=== PATIENT | female | born 1965 | race Caucasian/White ===

== ENCOUNTER → 2017-12-13 07:59 | Outpatient (CLI) | payer BC, SELFPAY ==
[2017-12-13 08:22] VITALS: BP 155/99; PULSE 65; RESP 16; TEMP 36.6; O2SAT 98; BMI 40.2
[2017-12-13 09:22] VITALS: BP 139/76; PULSE 67; RESP 18; TEMP 36.6; O2SAT 96
[2017-12-13 09:36] VITALS: BP 140/82; PULSE 68; RESP 18; TEMP 36.8
[2017-12-13 09:55] VITALS: BP 146/84; PULSE 69; RESP 16; TEMP 36.9; O2SAT 98
[2017-12-13 10:11] VITALS: BP 148/90; PULSE 77; RESP 18; TEMP 37; O2SAT 97
[2017-12-13 11:13] VITALS: BP 158/90; PULSE 69; RESP 18; TEMP 36.7; O2SAT 96
== END ==
PROVIDERS: Family Provider Internal Medicine; PCP Internal Medicine
DX: K50.00 Crohn's disease of small intestine without complications (principal); K60.3 Anal fistula
CPT/HCPCS: 96413; J1745; J7050; A4216

== ENCOUNTER → 2017-12-31 07:53 | Outpatient (CLI) | payer BC, SELFPAY ==
[2017-12-31 08:05] VITALS: BP 178/97; PULSE 68; RESP 16; TEMP 36.5; O2SAT 95; BMI 40.7
[2017-12-31 09:10] VITALS: BP 155/80; PULSE 67; RESP 16; TEMP 36.6; O2SAT 96
[2017-12-31 09:25] VITALS: BP 157/89; PULSE 65; RESP 16; TEMP 36.9; O2SAT 98
[2017-12-31 09:44] VITALS: BP 145/92; PULSE 70; RESP 16; TEMP 37.1; O2SAT 98
[2017-12-31 10:16] VITALS: BP 141/88; PULSE 68; RESP 16; TEMP 36.8; O2SAT 98
[2017-12-31 11:19] VITALS: BP 162/95; PULSE 64; RESP 16; TEMP 37.1; O2SAT 97
== END ==
PROVIDERS: Family Provider Internal Medicine; PCP Internal Medicine
DX: K50.00 Crohn's disease of small intestine without complications (principal); K60.3 Anal fistula
CPT/HCPCS: 96365; J1745; J7050; A4216

== ENCOUNTER → 2018-02-01 07:57 | Outpatient (CLI) | payer BC, SELFPAY ==
[2017-12-31 08:05] VITALS: BMI 40.7
[2018-02-01 08:09] VITALS: BP 165/84; PULSE 65; RESP 16; TEMP 36.3; O2SAT 97; BMI 40.8
== END ==
PROVIDERS: Family Provider Internal Medicine; PCP Internal Medicine
DX: Z51.11 Encounter for antineoplastic chemotherapy (principal); K50.00 Crohn's disease of small intestine without complications; K60.3 Anal fistula
CPT/HCPCS: 96413; 96415; J1745; J7050; A4216

== ENCOUNTER → 2018-03-29 07:49 | Outpatient (CLI) | payer BC, SELFPAY ==
[2018-02-01 08:09] VITALS: BMI 40.8
[2018-03-29 08:04] VITALS: BP 160/90; PULSE 68; RESP 16; TEMP 36.4; O2SAT 98; BMI 40.3
== END ==
PROVIDERS: Family Provider Internal Medicine; PCP Internal Medicine
DX: Z51.11 Encounter for antineoplastic chemotherapy (principal); K50.00 Crohn's disease of small intestine without complications; K60.3 Anal fistula
CPT/HCPCS: 96413; J1745; J7050; A4216

== ENCOUNTER 2018-04-16 08:41 | Outpatient (RCR) | payer BC, SELFPAY ==
[2018-03-29 08:04] VITALS: BMI 40.3
== END 2018-04-16 23:59 | disposition home or self-care (01) ==
LOC: NS 08:41
PROVIDERS: Family Provider Internal Medicine; PCP Internal Medicine
DX: K50.90 Crohn's disease, unspecified, without complications (principal); I10 Essential (primary) hypertension; Z71.3 Dietary counseling and surveillance
CPT/HCPCS: 97802

== ENCOUNTER → 2018-05-24 07:43 | Outpatient (CLI) | payer BC, SELFPAY ==
[2018-03-29 08:04] VITALS: BMI 40.3
[2018-05-24 07:54] VITALS: BP 142/88; PULSE 62; RESP 18; TEMP 36.5; O2SAT 97; BMI 40.6
== END ==
PROVIDERS: Family Provider Internal Medicine; PCP Internal Medicine
DX: K50.00 Crohn's disease of small intestine without complications (principal); K60.3 Anal fistula
CPT/HCPCS: 96365; J1745; J7050; A4216

== ENCOUNTER → 2018-07-26 07:51 | Outpatient (CLI) | payer BC, SELFPAY ==
[2018-05-24 07:54] VITALS: BMI 40.6
[2018-07-26 08:24] VITALS: BP 145/86; PULSE 64; RESP 16; TEMP 36.3; O2SAT 100; BMI 39.6
[2018-07-26 09:51] VITALS: BP 133/66; PULSE 68; RESP 16; TEMP 36.9; O2SAT 98
[2018-07-26 10:02] VITALS: BP 128/68; PULSE 62; RESP 16; TEMP 36.8
[2018-07-26 10:16] VITALS: BP 128/65; PULSE 63
== END ==
PROVIDERS: Family Provider Internal Medicine; PCP Internal Medicine
DX: K50.00 Crohn's disease of small intestine without complications (principal); K60.3 Anal fistula
CPT/HCPCS: 96413; 96415; J1745; J7050; A4216

== ENCOUNTER → 2018-09-27 07:46 | Outpatient (CLI) | payer BC, SELFPAY ==
[2018-07-26 08:24] VITALS: BMI 39.6
[2018-09-27 07:59] VITALS: BP 153/88; PULSE 65; RESP 16; TEMP 36.2; O2SAT 99; BMI 39.8
== END ==
PROVIDERS: Family Provider Internal Medicine; PCP Internal Medicine; Referring Provider Internal Medicine; Visit Provider Internal Medicine
DX: K50.00 Crohn's disease of small intestine without complications (principal); K60.3 Anal fistula
CPT/HCPCS: 96413; 96415; J1745; J7050; A4216

== ENCOUNTER → 2018-11-22 07:47 | Outpatient (CLI) | payer BC, SELFPAY ==
[2018-09-27 07:59] VITALS: BMI 39.8
[2018-11-22 08:00] VITALS: BP 145/86; PULSE 67; RESP 16; TEMP 36.6; O2SAT 98; BMI 39.8
[2018-11-22 09:19] VITALS: BP 149/73; PULSE 71; RESP 16; TEMP 36.3; O2SAT 96
[2018-11-22 09:40] VITALS: BP 148/69; PULSE 63; RESP 16; TEMP 36.4
[2018-11-22 09:54] VITALS: BP 136/76; PULSE 58; RESP 16; O2SAT 97
[2018-11-22 10:11] VITALS: BP 127/78; PULSE 68; RESP 16; TEMP 36.4; O2SAT 97
[2018-11-22 11:17] VITALS: BP 146/74; PULSE 66; RESP 16; TEMP 36.5; O2SAT 98
== END ==
PROVIDERS: Family Provider Internal Medicine; PCP Internal Medicine; Referring Provider Internal Medicine; Visit Provider Internal Medicine
DX: K50.00 Crohn's disease of small intestine without complications (principal); K60.3 Anal fistula
CPT/HCPCS: 96365; 96366 ×2; J1745; J7050; A4216; Q5103

== ENCOUNTER → 2019-01-20 07:31 | Outpatient (CLI) | payer BC, SELFPAY ==
[2018-11-22 08:00] VITALS: BMI 39.8
[2019-01-20 07:49] VITALS: BP 161/83; PULSE 71; RESP 18; TEMP 36.2; O2SAT 99; BMI 40.0
== END ==
PROVIDERS: Family Provider Internal Medicine; PCP Internal Medicine; Referring Provider Internal Medicine; Visit Provider Internal Medicine
DX: K50.00 Crohn's disease of small intestine without complications (principal); K60.3 Anal fistula
CPT/HCPCS: 96413; 96415; J1745; J7050; A4216

== ENCOUNTER → 2019-03-24 07:46 | Outpatient (CLI) | payer BC, SELFPAY ==
[2019-01-20 07:49] VITALS: BMI 40.0
[2019-03-24 08:04] VITALS: BP 154/87; PULSE 65; RESP 16; TEMP 36.3; O2SAT 98; BMI 40.1
== END ==
PROVIDERS: Family Provider Internal Medicine; PCP Internal Medicine; Referring Provider Internal Medicine; Visit Provider Internal Medicine
DX: K50.00 Crohn's disease of small intestine without complications (principal); K60.3 Anal fistula
CPT/HCPCS: 96413; 96415; J1745; J7050; A4216

== ENCOUNTER → 2019-05-20 07:44 | Outpatient (CLI) | payer BC, SELFPAY ==
[2019-03-24 08:04] VITALS: BMI 40.1
[2019-05-20 08:05] VITALS: BP 158/94; PULSE 54; RESP 16; TEMP 36.1; O2SAT 99; BMI 39.8
[2019-05-20] MEDS: 0.9% NaCl Peripheral Flush Adult/Peds IV (08:23)
[2019-05-20] MEDS: 0.9% NaCl IVPB Med Flush (250 mL) 15 ML IV (08:52)
== END ==
PROVIDERS: PCP Internal Medicine; Referring Provider Internal Medicine; Visit Provider Internal Medicine
DX: K50.00 Crohn's disease of small intestine without complications (principal); K60.3 Anal fistula
CPT/HCPCS: 96413; J1745; J7050; A4216

== ENCOUNTER → 2019-07-18 07:43 | Outpatient (CLI) | payer BC, SELFPAY ==
[2019-03-24 08:04] VITALS: BMI 40.1
[2019-05-20 08:05] VITALS: BMI 39.8
[2019-07-18] MEDS: 0.9% NaCl Peripheral Flush Adult/Peds IV (08:23)
[2019-07-18] MEDS: 0.9% NaCl IVPB Med Flush (250 mL) 15 ML IV (08:24)
[2019-07-18 08:25] VITALS: BP 124/74; PULSE 60; RESP 16; TEMP 36.2; O2SAT 98; BMI 39.1
[2019-07-18 12:08] VITALS: BP 144/87; PULSE 56
== END ==
PROVIDERS: PCP Internal Medicine; Referring Provider Internal Medicine; Visit Provider Internal Medicine
DX: K50.00 Crohn's disease of small intestine without complications (principal); K60.3 Anal fistula
CPT/HCPCS: 96413; J1745; J7050; A4216

== ENCOUNTER → 2019-09-04 11:23 | Outpatient (CLI) | payer BC, SELFPAY ==
[2019-07-18 08:25] VITALS: BMI 39.1
== END ==
PROVIDERS: PCP Internal Medicine; Referring Provider Family Medicine; Visit Provider Family Medicine
DX: Z03.818 Encounter for observation for suspected exposure to other biological agents ruled out (principal)
CPT/HCPCS: 87635; 94799; U0003

== ENCOUNTER → 2019-09-12 08:28 | Outpatient (CLI) | payer BC, SELFPAY ==
[2019-05-20 08:05] VITALS: BMI 39.8
[2019-07-18 08:25] VITALS: BMI 39.1
[2019-09-12 08:58] VITALS: BP 138/78; PULSE 63; RESP 16; TEMP 36.1; O2SAT 97; BMI 39.4
[2019-09-12] MEDS: 0.9% NaCl IVPB Med Flush (250 mL) 15 ML IV (08:58)
[2019-09-12] MEDS: 0.9% NaCl Peripheral Flush Adult/Peds IV (09:19)
[2019-09-12 12:32] VITALS: BP 159/95; PULSE 66; RESP 18; O2SAT 100
== END ==
PROVIDERS: PCP Internal Medicine; Referring Provider Internal Medicine; Visit Provider Internal Medicine
DX: K50.00 Crohn's disease of small intestine without complications (principal); K60.3 Anal fistula
CPT/HCPCS: J1745; J7050; A4216

== ENCOUNTER → 2019-11-24 08:58 | Outpatient (CLI) | payer BC, SELFPAY ==
[2019-09-12 08:58] VITALS: BMI 39.4
[2019-11-24 09:04] VITALS: BP 147/81; PULSE 66; RESP 16; TEMP 36.2; O2SAT 97; BMI 38.9
[2019-11-24] MEDS: 0.9% NaCl Peripheral Flush Adult/Peds IV (09:22)
[2019-11-24] MEDS: 0.9% NaCl IVPB Med Flush (250 mL) 15 ML IV (09:31)
== END ==
PROVIDERS: PCP Internal Medicine; Referring Provider Internal Medicine; Visit Provider Internal Medicine
DX: K50.013 Crohn's disease of small intestine with fistula (principal)
CPT/HCPCS: 96413; 96415; J1745; J7040; J7050; A4216

== ENCOUNTER → 2020-01-29 08:17 | Outpatient (CLI) | payer BC, SELFPAY ==
[2019-11-24 09:04] VITALS: BMI 38.9
[2020-01-29 08:24] VITALS: BP 152/89; PULSE 86; RESP 18; TEMP 35.8; O2SAT 99; BMI 38.5
[2020-01-29] MEDS: 0.9% NaCl Peripheral Flush Adult/Peds IV (09:00)
[2020-01-29 13:53] VITALS: BP 149/86; PULSE 71; RESP 16; TEMP 36.1
== END ==
PROVIDERS: PCP Internal Medicine; Referring Provider Internal Medicine; Visit Provider Internal Medicine
DX: K50.00 Crohn's disease of small intestine without complications (principal); K60.3 Anal fistula
CPT/HCPCS: 96413; 96415; J1745; J7040; A4216

== ENCOUNTER → 2020-03-24 10:36 | Outpatient (CLI) | payer BC, SELFPAY ==
[2020-03-24 08:37] VITALS: BMI 39.6
--- NOTE | 2020-03-24 10:39 | ECHOD_ITS ---
Reason For Study: HTN Procedure This was a 2D Doppler, Color Flow transthoracic echocardiogram. Exam performed in department. Left Ventricle Normal LV size. Left ventricular systolic function is normal. The estimated ejection fraction is 60 %. No regional wall motion abnormalities noted. Right Ventricle Normal RV size. Normal systolic function. Atria Normal left atrium. Normal right atrium. Mitral Valve Normal mitral valve. Mild (1+) mitral valve insufficiency. Tricuspid Valve Normal tricuspid valve. Mild tricuspid valve insufficiency. Pulmonary artery systolic pressure is 30 mmHg. Aortic Valve Normal aortic valve. Pulmonic Valve Normal pulmonic valve. Great Vessels Normal aortic root. The pulmonary artery is normal size. Normal inferior vena cava. Pericardium/Pleural No pericardial effusion. MMode/2D Measurements & Calculations LVIDd: 4.8 cm IVSd: 0.93 cm Ao root diam: 2.9 cm LVIDs: 3.1 cm LVPWd: 0.99 cm RVDd: 3.0 cm FS: 34.0 % LAV(MOD-bp): 36.6 ml LVAd ap4: 31.1 cm2 SV(MOD-sp4): 59.8 ml LAV(MOD-bp) Indexed: 17.3 ml/m2 EDV(MOD-sp4): 91.6 ml LAV(MOD-sp2): 28.9 ml EDV(sp4-el): 93.5 ml LAV(MOD-sp4): 41.7 ml LVAs ap4: 16.4 cm2 ESV(MOD-sp4): 31.8 ml ESV(sp4-el): 31.5 ml EF(MOD-sp4): 65.3 % EF(sp4-el): 66.3 % SV(sp4-el): 62.0 ml LA A4 area: 16.3 cm2 LA dimension(2D): 3.3 cm RA A4 area: 13.2 cm2 Doppler Measurements & Calculations MV E max sameer: 95.5 cm/sec Lat Peak E' Sameer: 10.3 cm/sec Med Peak E' Sameer: 6.9 cm/sec MV A max sameer: 99.6 cm/sec E/E' lat: 9.2 E/E' med: 13.8 MV E/A: 0.96 Ao V2 max: 170.8 cm/sec LV V1 max: 121.4 cm/sec PA V2 max: 118.5 cm/sec Ao max P.7 mmHg LV V1 max P.9 mmHg Ao V2 mean: 121.5 cm/sec Ao mean P.4 mmHg Ao V2 VTI: 38.4 cm TR max sameer: 253.7 cm/sec TR max P.8 mmHg Interpretation Summary Normal LV size. Left ventricular systolic function is normal. The estimated ejection fraction is 60 %. Mild tricuspid valve insufficiency. Pulmonary artery systolic pressure is 30 mmHg. Ordering Physician: Daniel Braden Referring Physician: Zora Mejia Performed By: Danielle Patel, DAVE, RVT
== END ==
LOC: CVS 10:38
PROVIDERS: PCP Internal Medicine; Referring Provider Internal Medicine Cardiovascular Disease; Visit Provider Internal Medicine Cardiovascular Disease
DX: I10 Essential (primary) hypertension (principal); Z79.899 Other long term (current) drug therapy
CPT/HCPCS: 93306

== ENCOUNTER → 2020-03-26 09:47 | Outpatient (CLI) | payer BC, SELFPAY ==
[2019-11-24 09:04] VITALS: BMI 38.9
[2020-03-24 08:37] VITALS: BMI 39.6
[2020-03-26 10:00] VITALS: BP 145/74; PULSE 72; RESP 16; TEMP 36.6; O2SAT 98; BMI 39.2
[2020-03-26] MEDS: 0.9% NaCl Peripheral Flush Adult/Peds IV (10:36)
== END ==
PROVIDERS: PCP Internal Medicine; Referring Provider Internal Medicine; Visit Provider Internal Medicine
DX: K50.00 Crohn's disease of small intestine without complications (principal); K60.3 Anal fistula
CPT/HCPCS: 96413; 96415; J1745; J7040; A4216

== ENCOUNTER 2020-04-25 11:22 | Emergency (ER) | payer BC, SELFPAY ==
[2020-03-26 10:00] VITALS: BMI 39.2
[2020-04-25 11:23] VITALS: BP 202/100; PULSE 73; RESP 15; TEMP 36.7; O2SAT 99; BMI 39.1
--- NOTE | 2020-04-25 11:35 | CT_ITS ---
STUDY: CT ABDOMEN AND PELVIS WITHOUT CONTRAST REASON FOR EXAM: Female, 54 years old. Kidney Stone. RT FLANK PAIN X 5 DAYS, HX CROHNS, COLON RESECTION, APPENDECTOMY RADIATION DOSAGE (If Supplied By Facility): CTDIvol = ( 21.18 ) mGy, DLP = ( 1100.84 ) mGycm TECHNIQUE: Transaxial images were obtained from the dome of the diaphragm to the symphysis pubis without oral contrast, and without intravenous contrast. Sagittal and coronal images were reconstructed. Individualized dose optimization techniques were used for this CT. COMPARISON: None. FINDINGS: The visualized lung bases are unremarkable. Normal liver. Normal gallbladder and extrahepatic biliary system. Normal spleen. Normal pancreas. Unremarkable right kidney. Unremarkable left kidney. Normal visualized stomach. Normal small intestine. Right colectomy. Normal abdominal aorta. Normal urinary bladder. Normal abdominal wall. There are diffuse degenerative changes of the visualized lumbar spine. CT/Abdomen/Pelvis without Cont IMPRESSION: No hydronephrosis or urolithiasis. Right colectomy. Electronically Signed: Brandon Brower MD at 12:29 EDT Tel , Service support ,
--- NOTE | 2020-04-25 11:37 | ED.DCSUM_ITS ---
History of Present Illness Chief Complaint: Flank Pain Informant: Patient Narrative: Patient presents to the emergency department with right flank pain and nausea. She tells me that Sunday afternoon she developed some low back pain in both sides. She states that on it seemed worse and she went to Dr. Was placed on Cipro and was diagnosed with a UTI. She states that today the pain is significantly worse she notes nausea. She notes now the pain seems to radiate inferiorly and anteriorly towards the pelvis. She denies any history of kidney stones. Has a history of Crohn's and is on Remicade. 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 Past Medical History - Allergies and Home Meds Allergies/Adverse Reactions: Allergies atenolol Allergy (Intermediate, Verified 04/25/20 11:49) Rash/Hives lisinopril Allergy (Intermediate, Verified 04/25/20 11:49) Hives amoxicillin [From Augmentin] Allergy (Verified 04/25/20 11:49) Nausea/Vom/Diarrhea clavulanic acid [From Augmentin] Allergy (Verified 04/25/20 11:49) Nausea/Vom/Diarrhea amlodipine Adverse Reaction (Unknown, Verified 04/25/20 11:49) Unknown bupropion [From Wellbutrin] Adverse Reaction (Unknown, Verified 04/25/20 11:49) Unknown hydrochlorothiazide Adverse Reaction (Unknown, Verified 04/25/20 11:49) Unknown pseudoephedrine [From Sudafed] Adverse Reaction (Unknown, Verified 04/25/20 11:49) Unknown hydrocodone [From [place]] Adverse Reaction (Verified 04/25/20 11:49) Nausea Primary Care Physician: Zora Mejia MD [Primary Care Provider] - Surgical History: no surgical history Smoking Status: Former smoker Drugs: None - Family History Offspring Family History: Family History (Last Reviewed 03/24/20 @ 09:[address] Daniel Braden MD) Mother Diabetes Heart disease Father Hypertension Myocardial infarction, Onset Age: 60 CAD (coronary artery disease) Grandmother Heart disease Family History: Reports: Clotting Disorder - Factor V Leiden, both daughters Sibling Family History: Family History (Last Reviewed 03/24/20 @ 09:[address] Daniel Braden MD) Mother Diabetes Heart disease Father Hypertension Myocardial infarction, Onset Age: 60 CAD (coronary artery disease) Grandmother Heart disease Family History: Reports: - - Crohn's disease Review of Systems General: Denies: Chills, Fever, Sweats Eyes: Denies: Visual changes - bilaterally, Diplopia ENT: Denies: Rhinorrhea, Sore throat Cardiovascular: Denies: Chest pain, Palpitations Respiratory: Denies: Dyspnea, Cough, Dyspnea on exertion Gastrointestinal: Reports: Abdominal pain, Nausea. Denies: Vomiting, Diarrhea, Melena, Hematochezia Genitourinary: Reports: Dysuria. Denies: Hematuria, Frequency Musculoskeletal: Denies: Back pain, Extremity Pain Skin: Denies: Rash, Wounds Neurological: Denies: Headache, Weakness, Numbness Physical Exam Vital Signs/Narrative: Vital Signs Temp Pulse Resp BP Pulse Ox 04/25/20 11:23 98.1 F 73 15 202/100 H 99 General: Well nourished, Well developed, Obese, No Acute Distress, - - Patient appears in pain. Head: Normocephalic, Atraumatic Eyes: Perrl, EOMI ENT: Moist mucous membranes, No rhinorrhea Neck: Supple, Nontender Cardiovascular: Regular rate, Regular rhythm, No murmurs Respiratory: No distress, CTA bilaterally, Chest nontender Abdomen: Soft, Nontender, Nondistended, Normal bowel sounds Back: Nontender, Normal Inspection Extremities: Nontender, No edema Skin: Normal color, No rash Neurological: Alert, Oriented x3, Cranial nerves II-XII grossly intact, Normal Strength, Normal Sensation Psychological: Normal affect, Normal Mood Diagnostic/Tx/Re-eval Clinical Impression(s) from Imaging Studies Abdomen/Pelvis CT 04/25/20 11:35 IMPRESSION: No hydronephrosis or urolithiasis. Right colectomy. Electronically Signed: Brandon Brower MD at 12:29 EDT Tel , Service support , Laboratory Last Values WBC 6.1 K/mm3 (4.4-11.0) 04/25/20 11:55 RBC 4.68 M/mm3 (4.2-5.4) 04/25/20 11:55 Hgb 14.4 g/dL (12.0-15.0) 04/25/20 11:55 Hct 43.1 % (37-47) 04/25/20 11:55 MCV 92.1 fL (81-99) 04/25/20 11:55 MCH 30.8 pg (27.0-32.0) 04/25/20 11:55 MCHC 33.4 g/dL (32-36) 04/25/20 11:55 RDW Std Deviation 44.2 fl (35.1-43.9) H 04/25/20 11:55 RDW Coeff of Rubén 13.1 % (11.6-14.6) 04/25/20 11:55 Plt Count 332 K/mm3 (150-450) 04/25/20 11:55 MPV 10.2 fl (6.2-12.0) 04/25/20 11:55 Immature Gran % (Auto) 0.200 % (0.0-0.9) 04/25/20 11:55 Neut % (Auto) 53.2 % (47-70) 04/25/20 11:55 Lymph % (Auto) 34.6 % (19-41) 04/25/20 11:55 [place] % (Auto) 8.7 % (0-10) 04/25/20 11:55 Eos % (Auto) 2.6 % (0-5) 04/25/20 11:55 Baso % (Auto) 0.7 % (0-1) 04/25/20 11:55 Absolute Neuts (auto) 3.2 X10^3/uL (2.0-7.7) 04/25/20 11:55 Absolute Lymphs (auto) 2.11 X10^3/uL (0.83-4.51) 04/25/20 11:55 Nucleated RBC % 0 % (0-5) 04/25/20 11:55 Sodium 140 mmol/L (136-145) 04/25/20 12:10 Potassium 3.2 mmol/L (3.5-5.1) L 04/25/20 12:10 Chloride 104 mmol/L (98-107) 04/25/20 12:10 Carbon Dioxide 28.0 mmol/L (21.0-32.0) 04/25/20 12:10 Anion Gap 8 (5-15) 04/25/20 12:10 BUN 22 mg/dL (7-18) H 04/25/20 12:10 Creatinine 0.57 mg/dL (0.55-1.02) 04/25/20 12:10 Estim Creat Clear Calc 103.89 ml/min 04/25/20 12:10 Est GFR (MDRD) Af Amer 143 mL/min (>60) 04/25/20 12:10 Est GFR (MDRD) Non-Af 118 mL/min (>60) 04/25/20 12:10 BUN/Creatinine Ratio 38.5 RATIO (10-20) H 04/25/20 12:10 Glucose 96 mg/dL (74-106) 04/25/20 12:10 Calcium 9.0 mg/dL (8.5-10.1) 04/25/20 12:10 Urine Color Yellow (Yellow) 04/25/20 11:55 Urine Clarity Clear (Clear) 04/25/20 11:55 Urine pH 5.0 (5.0 - 8.0) 04/25/20 11:55 Ur Specific [place] 1.025 (1.002-1.030) 04/25/20 11:55 Urine Protein 15 mg/dl (Negative) H 04/25/20 11:55 Urine Glucose (UA) Normal mg/dl (Normal) 04/25/20 11:55 Urine Ketones Negative mg/dl (Negative) 04/25/20 11:55 Urine Occult Blood 50 /ul (Negative) H 04/25/20 11:55 Urine Nitrite Negative (Negative) 04/25/20 11:55 Urine Bilirubin Negative mg/dL (Negative) 04/25/20 11:55 Urine Urobilinogen Normal mg/dl (Normal) 04/25/20 11:55 Ur Leukocyte Esterase 100 /ul (Negative) H 04/25/20 11:55 Urine RBC 0 SEEN /hpf (0-5) 04/25/20 11:55 Urine WBC 5-10 SEEN /hpf (0-5) 04/25/20 11:55 Ur Squamous Epith Cells 5-10 SEEN /hpf (5-10) 04/25/20 11:55 Urine Bacteria 1+ /hpf (None Seen) 04/25/20 11:55 Urine Mucus Not Reportable 04/25/20 11:55 - Medical Decision Making Not having access to the patient's first urinalysis I would conclude that it appears that the ciprofloxacin that she is using is working as today's urine specimen 5-10 whites 1+ bacteria negative nitrates and 5-10 squamous cells. Her CBC and BMP are negative except for hypokalemia. CT of the abdomen pelvis without contrast was obtained to evaluate for kidney stones. No obvious kidney stones were seen per radiology. Knee otherwise negative. Patient received Toradol morphine and Zofran. She is significantly improved. I will write for her to have Percocet and Zofran at home. She is to drink fluids and give this a couple days. If she is still hurting return or follow-up with primary care. Patient is comfortable with this plan. ED Disposition - Plan for ED Patient: Disposition: Home or Assisted Living Diagnosis: Right flank pain, Nausea Instructions: ED Flank Pain, Uncertain Cause Prescriptions: Oxycodone HCl/Acetaminophen [Percocet 5/325] 1 tablet PO Q6H PRN PRN 3 Days #12 tab PRN Reason: Pain Transmission Status: Sent to [facility] Ondansetron [Zofran Odt] 4 mg PO Q6H PRN PRN #10 tablet PRN Reason: Nausea Transmission Status: Pending to [facility] Referrals: Zora Mejia MD [Primary Care Provider] - (in 3 days if continued symptoms)
[2020-04-25] MEDS: Ondansetron 4 MG/2 ML Vial IV (11:57)
[2020-04-25] MEDS: Morphine 4 MG/ML Syringe IV (11:57)
[2020-04-25] MEDS: Ketorolac 30 MG/ML Syringe IV (11:57)
[2020-04-25 12:06] LABS: Absolute Lymphocyte Count 2.11 X10^3/uL (0.83-4.51); Absolute Neutrophil Count 3.2 X10^3/uL (2.0-7.7); Basophil# 0.04 X10^3/uL; Basophil% 0.7 % (0-1); Eosinophil# 0.16 X10^3/uL; Eosinophils% 2.6 % (0-5); Hematocrit 43.1 % (37-47); Hemoglobin 14.4 g/dL (12.0-15.0); Lymphocyte # 2.11 X10^3/ul (4.0); Lymphocyte % 34.6 % (19-41); Mean Corp Hgb Conc 33.4 g/dL (32-36); Mean Corpuscular Hgb 30.8 pg (27.0-32.0); Mean Corpuscular Volume 92.1 fL (81-99); Mean Platelet Vol. 10.2 fl (6.2-12.0); Monocyte# 0.53 X10^3/uL; Monocyte% 8.7 % (0-10); NRBC Flagged by Analyzer 0 % (0-5); Neutrophil # 3.24 X10^3/uL (2.7-7.7); Neutrophil % 53.2 % (47-70); Platelet Count 332 K/mm3 (150-450); RBC Distribution Width CV 13.1 % (11.6-14.6); RBC Distribution Width SD 44.2 fl (35.1-43.9); Red Blood Cells-Urine 0 SEEN /hpf (0-5); Red Blood Count 4.68 M/mm3 (4.2-5.4); White Blood Count 6.1 K/mm3 (4.4-11.0)
[2020-04-25 12:09] LABS: Color, Urine Yellow (Yellow); Glucose, Dipstick Normal (Normal); Ketone-Dipstick Negative (Negative); Leukocyte Esterase-Dipstick 100 /ul (Negative); Nitrite-Dipstick Negative (Negative); Occult Blood-Urine 50 /ul (Negative); Protein-Dipstick 15 mg/dl (Negative); Specific Gravity, Urine 1.025 (1.002-1.030); Urine Bilirubin Dipstick Negative (Negative); Urine Clarity Clear (Clear); Urine Urobilinogen Normal (Normal)
[2020-04-25 12:16] LABS: Bacteria 1+ /hpf (None Seen); Squamous Epithelial Cells - UA 5-10 SEEN /hpf (5-10); White Blood Cells 5-10 SEEN /hpf (0-5)
[2020-04-25 12:37] LABS: Anion Gap 8 (5-15); BUN 22 mg/dL (7-18); BUN/Creat Ratio 38.5 RATIO (10-20); Chloride 104 mmol/L (98-107); Creatinine, Serum 0.57 mg/dL (0.55-1.02); EST Glomerular Filtration Rate 118 mL/min (>60); Est Glom Filt Rate - Afr Amer 143 mL/min (>60); Estimated Creatinine Clearance 103.89 ml/min; Glucose 96 mg/dL (74-106); Potassium 3.2 mmol/L (3.5-5.1); Sodium Level 140 mmol/L (136-145)
[2020-04-25 12:40] VITALS: BP 170/93; PULSE 69; O2SAT 100
== END 2020-04-25 13:24 | disposition home or self-care (01) ==
PROVIDERS: Emergency Provider Emergency Medicine; PCP Internal Medicine
DX: R10.9 Unspecified abdominal pain (principal); R11.0 Nausea; E87.6 Hypokalemia; E66.9 Obesity, unspecified; Z87.891 Personal history of nicotine dependence; N39.0 Urinary tract infection, site not specified; K50.90 Crohn's disease, unspecified, without complications; Z82.49 Family history of ischemic heart disease and other diseases of the circulatory system; Z83.3 Family history of diabetes mellitus; Z88.0 Allergy status to penicillin; Z88.1 Allergy status to other antibiotic agents; Z88.5 Allergy status to narcotic agent; Z88.8 Allergy status to other drugs, medicaments and biological substances; Z90.49 Acquired absence of other specified parts of digestive tract
CPT/HCPCS: 74176; 80048; 81001; 85025; 96374; 96375; 99285; J7030; A4216; J2405

== ENCOUNTER → 2020-07-23 10:58 | Outpatient (CLI) | payer BC, SELFPAY ==
[2020-03-24 08:37] VITALS: BMI 39.6
[2020-07-23 11:06] VITALS: BP 141/84; PULSE 64; RESP 16; TEMP 35.8; O2SAT 99; BMI 36.4
[2020-07-23] MEDS: 0.9% NaCl Peripheral Flush Adult/Peds IV (11:40)
== END ==
PROVIDERS: PCP Internal Medicine; Referring Provider Internal Medicine; Visit Provider Internal Medicine
DX: K50.00 Crohn's disease of small intestine without complications (principal); K60.3 Anal fistula
CPT/HCPCS: 96413; J7050; A4216; Q5103

== ENCOUNTER → 2020-10-08 09:57 | Outpatient (CLI) | payer BC, SELFPAY ==
[2020-10-08 10:05] VITALS: BP 164/82; PULSE 60; RESP 16; TEMP 35.9; O2SAT 99; BMI 35.3
== END ==
PROVIDERS: PCP Internal Medicine; Visit Provider Internal Medicine
DX: K50.00 Crohn's disease of small intestine without complications (principal); K60.3 Anal fistula
CPT/HCPCS: 96413; J7050; A4216; Q5103

== ENCOUNTER → 2020-12-17 09:00 | Outpatient (CLI) | payer BC, OTHER, SELFPAY ==
[2020-12-17 09:06] VITALS: BP 145/91; PULSE 67; RESP 16; TEMP 35.7; O2SAT 99; BMI 35.8
[2020-12-17] MEDS: 0.9% NaCl Peripheral Flush Adult/Peds IV (09:40)
== END ==
PROVIDERS: PCP Internal Medicine; Referring Provider Internal Medicine; Visit Provider Internal Medicine
DX: K50.00 Crohn's disease of small intestine without complications (principal); K60.3 Anal fistula
CPT/HCPCS: 96365; 96413; J7050; A4216; Q5103

== ENCOUNTER 2021-02-08 08:27 | Outpatient (CLI) | payer BC, OTHER, SELFPAY ==
[2021-02-08] MEDS: 0.9% NaCl Peripheral Flush Adult/Peds IV (09:10)
[2021-02-08 09:11] VITALS: BP 150/88; PULSE 67; RESP 16; TEMP 36.6; O2SAT 98
== END 2021-02-08 23:59 | disposition short-term general hospital (02) ==
LOC: MEDOUTP 08:29
PROVIDERS: PCP Internal Medicine; Referring Provider Internal Medicine; Visit Provider Internal Medicine
DX: K50.00 Crohn's disease of small intestine without complications (principal); K60.3 Anal fistula
CPT/HCPCS: 96413; J7050; A4216; Q5103

== ENCOUNTER 2021-04-11 08:36 | Outpatient (CLI) | payer BC, OTHER, SELFPAY ==
[2021-04-11 08:44] VITALS: BP 138/89; PULSE 61; RESP 16; TEMP 36.3; O2SAT 98
[2021-04-11] MEDS: 0.9% NaCl Peripheral Flush Adult/Peds IV ×2 (09:06→10:47)
== END 2021-04-11 23:59 | disposition home or self-care (01) ==
LOC: MEDOUTP 08:37
PROVIDERS: PCP Internal Medicine; Referring Provider Internal Medicine; Visit Provider Internal Medicine
DX: K50.00 Crohn's disease of small intestine without complications (principal); K60.3 Anal fistula
CPT/HCPCS: 96413; J7050; A4216; Q5103

== ENCOUNTER → 2021-06-10 | Outpatient (CLI) | payer BC, OTHER, SELFPAY ==
[2021-06-10 08:18] VITALS: BP 150/88; PULSE 69; RESP 16; TEMP 35.8; O2SAT 97; BMI 36.9
== END | disposition home or self-care (01) ==
LOC: MEDOUTP 08:12
PROVIDERS: PCP Internal Medicine; Referring Provider Internal Medicine; Visit Provider Internal Medicine
DX: K50.00 Crohn's disease of small intestine without complications (principal); K60.3 Anal fistula
CPT/HCPCS: 96413; J7050; Q5103

== ENCOUNTER 2021-08-16 08:24 | Outpatient (CLI) | payer BC, OTHER, SELFPAY ==
[2021-08-16 08:32] VITALS: BP 135/76; PULSE 77; RESP 16; TEMP 36.3; O2SAT 99; BMI 36.2
[2021-08-16] MEDS: 0.9% NaCl Peripheral Flush Adult/Peds IV (09:21)
== END 2021-08-16 23:59 | disposition home or self-care (01) ==
LOC: MEDOUTP 08:24
PROVIDERS: PCP Internal Medicine; Referring Provider Internal Medicine; Visit Provider Internal Medicine
DX: K50.00 Crohn's disease of small intestine without complications (principal); K60.3 Anal fistula
CPT/HCPCS: 96413; J7050; A4216; Q5103

== ENCOUNTER → 2021-10-14 | Outpatient (CLI) | payer BC, OTHER, SELFPAY ==
[2021-10-14] MEDS: 0.9% NaCl Peripheral Flush Adult/Peds IV (08:50)
[2021-10-14 08:51] VITALS: BP 117/69; PULSE 58; RESP 16; TEMP 36.1; O2SAT 99; BMI 36.6
== END | disposition home or self-care (01) ==
LOC: MEDOUTP 08:30
PROVIDERS: PCP Internal Medicine; Referring Provider Internal Medicine; Visit Provider Internal Medicine
DX: K50.00 Crohn's disease of small intestine without complications (principal); K60.3 Anal fistula
CPT/HCPCS: 96413; J7050; A4216; Q5103

== ENCOUNTER → 2021-12-09 | Outpatient (CLI) | payer BC, OTHER, SELFPAY ==
[2021-12-09 08:36] VITALS: BP 115/69; PULSE 62; RESP 16; TEMP 36.3; O2SAT 99; BMI 37.0
[2021-12-09] MEDS: 0.9% NaCl Peripheral Flush Adult/Peds IV (08:53)
== END | disposition home or self-care (01) ==
LOC: MEDOUTP 08:30
PROVIDERS: PCP Internal Medicine; Referring Provider Internal Medicine; Visit Provider Internal Medicine
DX: K50.00 Crohn's disease of small intestine without complications (principal); K60.3 Anal fistula
CPT/HCPCS: 96413; 96415; J7050; A4216; Q5103

== ENCOUNTER 2022-02-17 08:34 | Outpatient (CLI) | payer BC, OTHER, SELFPAY ==
[2022-02-17 08:51] VITALS: BP 135/79; PULSE 75; RESP 16; TEMP 36.3; O2SAT 99; BMI 38.4
[2022-02-17] MEDS: 0.9% NaCl Peripheral Flush Adult/Peds IV (09:27)
[2022-02-17 13:53] VITALS: BP 149/92; PULSE 65; RESP 16; O2SAT 98
== END 2022-02-17 23:59 | disposition home or self-care (01) ==
LOC: MEDOUTP 08:36
PROVIDERS: PCP Internal Medicine; Referring Provider Internal Medicine; Visit Provider Internal Medicine
DX: K50.00 Crohn's disease of small intestine without complications (principal); K60.3 Anal fistula
CPT/HCPCS: 96413; 96415; J7040; A4216; Q5103

== ENCOUNTER 2022-04-21 08:15 | Outpatient (CLI) | payer BC, OTHER, SELFPAY ==
[2022-04-21 08:39] VITALS: BP 121/64; PULSE 64; RESP 16; TEMP 35.8; O2SAT 100; BMI 37.0
[2022-04-21] MEDS: 0.9% NaCl Peripheral Flush Adult/Peds IV (09:17)
== END 2022-04-21 23:59 | disposition home or self-care (01) ==
PROVIDERS: PCP Internal Medicine; Referring Provider Internal Medicine; Visit Provider Internal Medicine
DX: K50.00 Crohn's disease of small intestine without complications (principal); K60.3 Anal fistula
CPT/HCPCS: 96413; 96415; J7050; A4216; Q5103

== ENCOUNTER 2022-06-20 08:28 | Outpatient (CLI) | payer BC, OTHER, SELFPAY ==
[2022-06-20 08:37] VITALS: BP 135/80; PULSE 75; RESP 16; TEMP 35.8; O2SAT 100; BMI 38.2
== END 2022-06-20 08:29 | disposition home or self-care (01) ==
LOC: MEDOUTP 08:28
PROVIDERS: PCP Internal Medicine; Referring Provider Internal Medicine; Visit Provider Internal Medicine
DX: K50.00 Crohn's disease of small intestine without complications (principal); K60.3 Anal fistula
CPT/HCPCS: 96413; 96415; J7050; A4216; Q5103

== ENCOUNTER 2022-07-15 16:10 | Emergency (ER) | payer BC, SELFPAY ==
[2022-07-15 16:10] VITALS: BP 134/99; PULSE 89; RESP 16; TEMP 36.8; O2SAT 98; BMI 36.3
--- NOTE | 2022-07-15 16:49 | CT_ITS ---
STUDY: CT Abdomen And Pelvis W/ Contrast Injection 07/15/2022 7:58 PM REASON FOR EXAM: Female, 57 years old. ABDOMINAL PAIN Abdominal pain -- ABDOMEN PAIN X 3 DAYS,NAUSEA,VOMITING AND DIARRHEA HX:CROHN''S,IBS,HLD,HTN,GERD,CARCINOID TUMOR OF APPENDIX WITH APPENDECTOMY,COLON RESECTION TECHNIQUE: Transaxial images were obtained oral contrast, and Oral and amp; IV Gastrografin and amp; 100mL Isovue-300 intravenous contrast. Individualized dose optimization techniques were used for this CT. COMPARISON: 04.25.20. FINDINGS: The visualized lung bases are unremarkable. The visualized portions of the heart are within normal limits. Unremarkable liver. Unremarkable gallbladder and extrahepatic biliary system. Unremarkable spleen. Unremarkable pancreas. Unremarkable bilateral adrenal glands. There are hypodensities in the right kidney. These are consistent for cysts. No follow up required. No acute findings of the left kidney. Unremarkable visualized stomach. Unremarkable small intestine. Right hemicolectomy changes. There is non-visualization of the appendix. Focal wall thickening of the hepatic flexure of the colon. This can be related to a colitis. There are no acute findings of the abdominal aorta. Unremarkable inferior vena cava. Subcentimeter mesenteric lymph nodes. Unremarkable urinary bladder. There is atrophy of the uterus. There is an umbilical hernia containing fat. There are diffuse degenerative changes of the visualized lumbar spine. CT/Abdomen/Pelvis WITH Contrast IMPRESSION: (NOT LISTED IN ORDER OF SIGNIFICANCE) Focal wall thickening of the hepatic flexure of the colon. This can be related to a colitis. Other findings as above. Electronically Signed: Samuel Baker MD at 20:01 EDT ,
--- NOTE | 2022-07-15 16:53 | ED.VIS.GI ---
HPI HPI - GI History of Present Illness Chief Complaint: Diarrhea Informant: patient Abdominal Pain/Flank Pain Onset: Days (3) Context: Sudden Onset Timing: Continuous Quality: Cramping Location: Diffuse Worsened by: Food Relieved by: Nothing Nausea/Vomiting/Emesis GI Symptom: Positive for Nausea and Vomiting Onset: Days (3) Quality: Positive for Nonbilious; Negative for Blood streaks, Coffee ground or Hematemesis Diarrhea/Melena/Hematochezia GI Symptom: Positive for Diarrhea; Negative for Melena or Hematochezia Onset: Days (3) Stool Quality: Positive for Watery Associated Symptoms Associated Symptoms: Negative for Dysuria, Frequency or Hematuria Narrative Narrative: Patient presents with abdominal pain that has been constant for the past 3 days. Patient states the pain began suddenly. Patient states it has been constant. Patient describes it as cramping. Patient states it is diffuse across her abdomen. Patient states it is worse with any eating or drinking. Patient admits to nausea and vomiting over the past couple days but states that has improved today. Patient also admits 2 to 3 days of watery diarrhea. Patient states that is starting to improve today. Patient denies any hematemesis or coffee-ground emesis. Patient denies any melena or hematochezia. Patient denies any urinary complaints. [facility] Medical History (Updated 07/15/22 @ 20:[address] Derrick Renner, ) Carcinoid tumor of appendix Crohn's disease Essential hypertension GERD (gastroesophageal reflux disease) Hemorrhoid Hyperlipidemia Hypokalemia Infliximab (Remicade) long-term use Iron deficiency anemia Obesity Panic disorder Vertigo Home Medications chlorthalidone 25 mg tablet 25 mg PO QHS 05/09/16 [History Last Taken 05/22/16 22:00] losartan 100 mg tablet 100 mg PO QHS 05/09/16 [History Last Taken 05/22/16 22:00] clonidine HCl 0.2 mg tablet 0.2 mg PO BID 12/31/17 [History Last Taken Unknown] cholecalciferol (vitamin D3) 125 mcg (5,000 unit) capsule 125 mcg PO DAILY 03/22/20 [History Last Taken Unknown] infliximab 100 mg intravenous solution (Remicade) 100 mg IV 03/22/20 [History Last Taken Unknown] meclizine 25 mg tablet 25 mg PO .COMPLEX 03/22/20 [History Last Taken Unknown] multivitamin,[id number]-[id number] (Complete Multivitamin tablet) 1 tab PO DAILY 03/22/20 [History Last Taken Unknown] omeprazole 20 mg capsule,delayed release 20 mg PO .COMPLEX 03/22/20 [History Last Taken Unknown] potassium chloride 20 mEq tablet,extended release 20 meq PO DAILY PRN supplement 03/22/20 [History Last Taken Unknown] promethazine 12.5 mg tablet 12.5 mg PO Q6H PRN Nausea 03/22/20 [History Last Taken Unknown] escitalopram oxalate 20 mg tablet 20 mg PO DAILY 03/24/20 [History Last Taken Unknown] norgestrel 0.3 mg-ethinyl estradiol 30 mcg tablet 1 tab PO DAILY Diarrhea 03/24/20 [History Last Taken Unknown] ondansetron 4 mg disintegrating tablet 4 mg PO Q6H PRN PRN Nausea #10 tabs 04/25/20 [Rx Last Taken Unknown] ciprofloxacin HCl 500 mg tablet 500 mg PO BID #20 TABLETS 07/15/22 [Rx Last Taken Unknown] dicyclomine 10 mg capsule 20 mg PO TIDAC #20 CAPSULES 07/15/22 [Rx Last Taken Unknown] metronidazole 500 mg tablet 500 mg PO Q6H #40 tabs 07/15/22 [Rx Last Taken Unknown] Allergy/AdvReac Type Severity Reaction Status Date / Time atenolol Allergy Intermediate Rash/Hives Verified 07/15/22 16:11 lisinopril Allergy Intermediate Hives Verified 07/15/22 16:11 amoxicillin [From Augmentin] Allergy Nausea/Vom/ Verified 07/15/22 16:11 Diarrhea clavulanic acid Allergy Nausea/Vom/ Verified 07/15/22 16:11 [From Augmentin] Diarrhea amlodipine AdvReac Unknown Unknown Verified 07/15/22 16:11 bupropion [From Wellbutrin] AdvReac Unknown Unknown Verified 07/15/22 16:11 hydrochlorothiazide AdvReac Unknown Unknown Verified 07/15/22 16:11 pseudoephedrine AdvReac Unknown Unknown Verified 07/15/22 16:11 [From Sudafed] hydrocodone [From [place]] AdvReac Nausea Verified 07/15/22 16:11 Family History Mother Diabetes Heart disease chf Father Hypertension Myocardial infarction, Onset Age: 60 CAD (coronary artery disease) CABG Grandmother Heart disease chf Surgical History History of appendectomy History of colon resection History of colonoscopy Social History Smoking Status: Former smoker quit date: 02/05/03 ROS ROS ED Constitutional Constitutional ED: Reports chills, fever(s), subjective and sweats Eyes Eyes: Denies blurry vision or change in vision ENT ENT ED: Denies rhinorrhea or sore throat Cardiovascular Cardiovascular: Denies chest pain or palpitations Respiratory/Chest Respiratory/Chest: Denies cough or dyspnea Gastrointestinal Gastrointestinal: Reports abdominal pain, diarrhea, nausea and vomiting Genitourinary Genitourinary ED: Denies dysuria or hematuria Musculoskeletal Musculoskeletal: Denies back pain or neck pain Integumentary Denies abscess or rash Neurologic Neurologic: Denies headache(s) or weakness Allergic/Immunologic Allergic/Immunologic ED: Denies mouth swelling or urticaria EXAM Physical Exam Const Vital Signs: 07/15/22 16:10 07/15/22 18:10 07/15/22 20:09 Temperature 98.2 F Temperature Source Temporal Pulse Rate 89 73 Respiratory Rate 16 18 18 Blood Pressure 134/99 H 130/77 H Blood Pressure Mean 110 94 Pulse Ox 98 97 Oxygen Delivery Method Room Air Room Air Room Air Positive well nourished and well developed General Appearance ED: well developed HEENT Reports moist mucous membranes Neck supple and no JVD Resp normal respiratory effort and clear to auscultation bilaterally Cardio regular rate, regular rhythm and no murmurs GI normal to inspection, nondistended, normoactive bowel sounds Palpation: soft and tender epigastric, LLQ, RLQ, LUQ, RUQ, periumbilical and suprapubic Extremity normal to inspection General Extremety ED: Negative for edema or tenderness General Extremity: Negative for edema Neuro oriented x3, CN's II-XII intact bilaterally and no sensory deficits noted Sensorium / Orientation: alert Motor Exam: strength 5/5 throughout Psych mental status grossly normal Skin no rashes or lesions noted MDM MDM MDM Narrative Medical decision making narrative: Differential diagnosis includes gastroenteritis, Crohn's flareup, dehydration, bowel obstruction, perforation, pancreatitis, pyelonephritis, and urinary tract infection. CBC will be obtained to assess for leukocytosis and anemia. Comprehensive metabolic profile will be obtained to assess for hepatic function, renal function, and electrolyte abnormality. Urinalysis will be obtained to assess for urinary tract infection and hematuria. Lipase will be obtained to assess for pancreatitis. CT scan of the abdomen pelvis will be obtained to assess for bowel obstruction and perforation. Lab Data Attestation: I reviewed the patient's lab results. Lab results narrative: CBC was reviewed and was within normal limits. Comprehensive metabolic profile was reviewed. Potassium was low at 2.7. The remainder was within normal limits. Lipase was reviewed and was normal. Urinalysis was reviewed. Leukocyte esterase was 100 with 10-25 white blood cells and 1+ bacteria. Labs: Laboratory Results - last 24 hr 07/15/22 07/15/22 07/15/22 17:20 17:20 20:00 WBC 5.1 RBC 4.76 Hgb 15.1 H Hct 43.8 MCV 92.0 MCH 31.7 MCHC 34.5 RDW Std Deviation 44.7 H RDW Coeff of Rubén 13.1 Plt Count 234 MPV 10.0 Immature Gran % (Auto) 0.000 Neut % (Auto) 50.9 Lymph % (Auto) 32.3 [place] % (Auto) 16.2 H Eos % (Auto) 0.2 Baso % (Auto) 0.4 Absolute Neuts (auto) 2.6 Absolute Lymphs (auto) 1.64 Nucleated RBC % 0 Sodium 138 Potassium 2.7 L* Chloride 106 Carbon Dioxide 25.0 Anion Gap 7 BUN 18 Creatinine 0.66 Estim Creat Clear Calc 86.66 Est GFR (MDRD) Af Amer 120 Est GFR (MDRD) Non-Af 99 BUN/Creatinine Ratio 27.3 H Glucose 101 Calcium 8.8 Total Bilirubin 0.40 AST 34 ALT 52 Alkaline Phosphatase 57 Total Protein 7.7 Albumin 3.7 Globulin 4.0 Albumin/Globulin Ratio 0.9 Lipase 18 Urine Color Yellow Urine Clarity Sl. Cloudy Urine pH 6.5 Ur Specific [place] 1.010 Urine Protein 15 H Urine Glucose (UA) Normal Urine Ketones Negative Urine Occult Blood 50 H Urine Nitrite Negative Urine Bilirubin Negative Urine Urobilinogen Normal Ur Leukocyte Esterase 100 H Urine RBC 0-5 SEEN Urine WBC 10-25 SEEN Ur Squamous Epith Cells 0-5 SEEN Urine Bacteria 1+ Urine Mucus 0 SEEN Radiography Diagnostic Testing: Clinical Impression(s) from Imaging Studies Abdomen/Pelvis CT 07/15/22 16:49 IMPRESSION: (NOT LISTED IN ORDER OF SIGNIFICANCE) Focal wall thickening of the hepatic flexure of the colon. This can be related to a colitis. Other findings as above. Electronically Signed: Samuel Baker MD at 20:01 EDT Reading Location ID and State: [facility] / [place] , Service support , CT scan of the abdomen and pelvis was obtained with oral and IV contrast. There is focal wall thickening of the hepatic flexure of the colon. This is most likely related to colitis. There is no other acute findings noted. It was interpreted by the radiologist and was also independently reviewed by myself. Treatment and Re-Evaluation :: Patient was given IV fluids, morphine, and Zofran. Patient was given a dose of oral potassium for her hypokalemia. Patient was given a dose of Bentyl. Patient was advised of her findings. Patient was given prescriptions for Cipro and Flagyl. Patient was also given a prescription for Bentyl. Patient was instructed to start with a liquid diet and advance as tolerated. Patient was instructed to follow-up with her primary care physician and solutions architect in 5 to 7 days. Patient understood and was agreeable with the plan. All questions were answered. Discharge Plan Triage Chief Complaint: Diarrhea ED Provider: Derrick Renner Dx/Rx/DC Orders Clinical Impression: Colitis, Hypokalemia, Crohn's disease, Urinary tract infection Instructions: ED Understanding Colitis, ED Crohn's Disease, ED Cystitis Female Adult Prescriptions: New metronidazole [metronidazole] 500 mg tablet 500 mg PO Q6H Qty: 40 0RF ciprofloxacin HCl [ciprofloxacin HCl] 500 mg tablet 500 mg PO BID Qty: 20 0RF dicyclomine 10 mg capsule 20 mg PO TIDAC Qty: 20 0RF No Action potassium chloride 20 mEq tablet extended release 20 meq PO DAILY PRN (Reason: supplement) Remicade 100 mg recon soln 100 mg IV Rx Instructions: IV per ordering physician as directed meclizine 25 mg tablet 25 mg PO .COMPLEX Rx Instructions: 25 mg PO q 6 hours prn; promethazine 12.5 mg tablet 12.5 mg PO Q6H PRN (Reason: Nausea) omeprazole 20 mg capsule,delayed release(DR/EC) 20 mg PO .COMPLEX Rx Instructions: 20 mg PO bid until reflux resolved then daily; cholecalciferol (vitamin D3) 125 mcg (5,000 unit) capsule 125 mcg PO DAILY multivitamin,[id number]-[id number]-[id number] tablet 1 tab PO DAILY chlorthalidone 25 MG tablet 25 mg PO QHS Label Comments: Take 1 tablet by mouth once daily. As directed losartan 100 MG tablet 100 mg PO QHS Label Comments: BP MED. norgestrel-ethinyl estradiol 0.3-30 mg-mcg tablet 1 tab PO DAILY Label Comments: Take 1 tablet by mouth once daily. CONTROL clonidine HCl 0.2 MG tablet 0.2 mg PO BID escitalopram oxalate 20 mg tablet 20 mg PO DAILY ondansetron 4 MG tablet 4 mg PO Q6H PRN PRN (Reason: Nausea) Qty: 10 0RF Primary Care Provider: Zora Mejia Referrals: Zora Mejia MD [Primary Care Provider] - 3-5 Days Disposition Disposition: Home, Self Care
[2022-07-15] MEDS: Morphine 4 MG/ML Syringe IV (17:04)
[2022-07-15] MEDS: Ondansetron 4 MG/2 ML Vial IV (17:04)
[2022-07-15] MEDS: 0.9% Normal Saline 1,000 ML 1000 ML IV (17:04)
[2022-07-15 17:28] LABS: Absolute Lymphocyte Count 1.64 X10^3/uL (0.83-4.51); Absolute Neutrophil Count 2.6 X10^3/uL (2.0-7.7); Basophil# 0.02 X10^3/uL; Basophil% 0.4 % (0-1); Eosinophil# 0.01 X10^3/uL; Eosinophils% 0.2 % (0-5); Hematocrit 43.8 % (37-47); Hemoglobin 15.1 g/dL (12.0-15.0); Lymphocyte # 1.64 X10^3/ul (0.83-4.51); Lymphocyte % 32.3 % (19-41); Mean Corp Hgb Conc 34.5 g/dL (32-36); Mean Corpuscular Hgb 31.7 pg (27.0-32.0); Monocyte# 0.82 X10^3/uL; Monocyte% 16.2 % (0-10); NRBC Flagged by Analyzer 0 % (0-5); Neutrophil # 2.58 X10^3/uL (2.7-7.7); Neutrophil % 50.9 % (47-70); Platelet Count 234 K/mm3 (150-450); RBC Distribution Width CV 13.1 % (11.6-14.6); RBC Distribution Width SD 44.7 fl (35.1-43.9); Red Blood Count 4.76 M/mm3 (4.2-5.4); White Blood Count 5.1 K/mm3 (4.4-11.0)
[2022-07-15 17:52] LABS: ALB/GLOB Ratio 0.9 RATIO (0.9-2.4); AST(SGOT) 34 U/L (15-37); Alanine Aminotransfer ALT/SGPT 52 U/L (13-56); Albumin, Serum 3.7 g/dL (3.2-5.0); Alkaline Phosphatase 57 U/L (45-117); Anion Gap 7 (5-15); BUN 18 mg/dL (7-18); BUN/Creat Ratio 27.3 RATIO (10-20); Calcium,Total 8.8 mg/dL (8.5-10.1); Chloride 106 mmol/L (98-107); Creatinine, Serum 0.66 mg/dL (0.55-1.02); EST Glomerular Filtration Rate 99 mL/min (>60); Est Glom Filt Rate - Afr Amer 120 mL/min (>60); Estimated Creatinine Clearance 86.66 ml/min; Glucose 101 mg/dL (74-106); Lipase 18 U/L (13-75); Potassium 2.7 mmol/L (3.5-5.1); Protein, Total 7.7 g/dL (6.4-8.2); Sodium Level 138 mmol/L (136-145)
[2022-07-15 18:10] VITALS: RESP 18
[2022-07-15] MEDS: Potassium Chloride Oral Soln 20 MEQ/15 ML UDC 40 MEQ PO (18:15)
[2022-07-15 20:03] LABS: Mucous, Urine 0 SEEN /hpf (<or=2+)
[2022-07-15] MEDS: Dicyclomine 20 MG/2 ML Vial IM (20:04)
[2022-07-15 20:05] LABS: Color, Urine Yellow (Yellow); Glucose, Dipstick Normal (Normal); Ketone-Dipstick Negative (Negative); Leukocyte Esterase-Dipstick 100 /ul (Negative); Nitrite-Dipstick Negative (Negative); Occult Blood-Urine 50 /ul (Negative); Protein-Dipstick 15 mg/dl (Negative); Urine Bilirubin Dipstick Negative (Negative); Urine Clarity Sl. Cloudy (Clear); Urine Urobilinogen Normal (Normal); Urine pH 6.5 (5.0 - 8.0)
[2022-07-15 20:09] VITALS: BP 130/77; PULSE 73; RESP 18; O2SAT 97
[2022-07-15 20:10] LABS: Red Blood Cells-Urine 0-5 SEEN /hpf (0-5); Squamous Epithelial Cells - UA 0-5 SEEN /hpf (5-10); White Blood Cells 10-25 SEEN /hpf (0-5)
[2022-07-15 20:11] LABS: Bacteria 1+ /hpf (None Seen)
[2022-07-15] MEDS: metroNIDAZOLE 500 MG Tablet PO (20:47)
[2022-07-15] MEDS: Ciprofloxacin 500 MG Tablet PO (20:47)
== END 2022-07-15 20:49 | disposition home or self-care (01) ==
PROVIDERS: Emergency Provider Emergency Medicine; PCP Internal Medicine; Visit Provider Emergency Medicine
DX: K50.90 Crohn's disease, unspecified, without complications (principal); N39.0 Urinary tract infection, site not specified; Z87.891 Personal history of nicotine dependence; E78.5 Hyperlipidemia, unspecified; E87.6 Hypokalemia; I10 Essential (primary) hypertension; Z79.899 Other long term (current) drug therapy; R42 Dizziness and giddiness; K21.9 Gastro-esophageal reflux disease without esophagitis; Z79.3 Long term (current) use of hormonal contraceptives; Z90.49 Acquired absence of other specified parts of digestive tract
CPT/HCPCS: 74177; 80053; 81001; 83690; 85025; 99282; J7030; Q9967; A4216; J2405

== ENCOUNTER → 2023-07-26 | Outpatient (CLI) | payer BC, SELFPAY ==
--- NOTE | 2023-07-26 11:50 | MRI_ITS ---
INDICATION: Crohn''s disease EXAMINATION: MRI - MR Enterography Abdomen/Pelvis W/ Contrast TECHNIQUE: Multiplanar and multisequence MR images of the abdomen and pelvis were obtained pre and post IV contrast. IV Contrast Dosage and Agent: 20CC CLARISCAN COMPARISON: July 15, 2022, April 25, 2020 CT, June 14, 2016 small bowel is. FINDINGS: LOWER CHEST: Lung bases are clear. No cardiomegaly or pericardial effusion. LIVER: Homogeneous. No focal mass. GALLBLADDER AND BILIARY TREE: No filling defects in the gallbladder. No gallbladder distension or wall edema. No intra- or extrahepatic biliary ductal dilation. PANCREAS: Pancreatic body 4 mm homogeneous T2 hyperintense cystic lesion without enhancement. No definitive connection to the duct is appreciated. Remainder the pancreas is normal in appearance. No peripancreatic inflammation. SPLEEN: Normal size without focal cystic or solid mass. ADRENAL GLANDS: No nodules. KIDNEYS AND URETERS: Right renal 1.3 cm T2 hyperintense homogeneous cyst Normal renal size and position. No hydronephrosis. PELVIS: No evidence of uterine or adnexal mass. BOWEL: No gastric wall thickening or surrounding inflammation. No small bowel distention or gross wall inflammation. Prior right partial hemicolectomy. Moderate to large distal colonic stool burden without gross wall thickening or abnormal enhancement. No evidence of fistulization. PERITONEUM: No ascites or free air. No other fluid collection. LYMPH NODES: No enlarged mesenteric or retroperitoneal lymph nodes. VESSELS: Aorta is non-dilated. MRI/Enterography Abd/Pel IMPRESSION: Moderate to large distal colonic stool burden as can be seen with constipation. No evidence of stricture or obstruction. No inflammation surrounding small or large bowel to suggest active Crohn''s inflammation. 4 mm pancreatic body T2 hyperintense lesion without definitive connection to pancreatic duct. 1 year follow-up MRI recommended. Electronically Signed: Hao Mejia MD at 17:41 EDT ,
[2023-07-26 12:10] LABS: CREATININE FINGERSTICK < 1.0 mg/dL (0.55-1.02); EGFR FINGERSTICK > 60.0000 mL/min (>60)
[2023-07-26 12:19] VITALS: BP 126/73; PULSE 65; RESP 16; O2SAT 98; BMI 37.9
[2023-07-26] MEDS: Glucagon 1 MG/ML Syringe IV (13:21)
[2023-07-26] MEDS: 0.9% Saline Lock 10 ML Syringe IV (13:23)
[2023-07-26 13:45] VITALS: BP 138/76; PULSE 60; RESP 16; O2SAT 99
== END | disposition home or self-care (01) ==
LOC: MRI 11:27
PROVIDERS: PCP Internal Medicine; Referring Provider Internal Medicine; Visit Provider Internal Medicine
DX: R10.31 Right lower quadrant pain (principal)
CPT/HCPCS: 74183; 96374; A9575; A4216; J1610

== ENCOUNTER 2024-02-14 13:06 | Emergency (ER) | payer BC, SELFPAY ==
[2024-02-14 13:07] VITALS: BP 159/86; PULSE 73; RESP 16; TEMP 36.6; O2SAT 100; BMI 38.2
--- NOTE | 2024-02-14 13:42 | EX.ED.DYSGE1 ---
HPI <BERNADETTE Palomo - Last Filed: 02/14/24 16:00> History of Present Illness Chief Complaint: Shortness of Breath Narrative Narrative: 58-year-old female past medical history of HTN, Crohn's disease on Remicade presents with 2-week history of productive cough. She was seen at a walk-in clinic 2 days ago and prescribed erythromycin and amoxicillin for presumed pneumonia without a chest x-ray. Last night she felt like she had subjective fever and chills, chest pressure and left shoulder pain, and feels short of breath with exertion. She used an inhaler prior to arrival. She denies smoking or history of asthma or COPD. [facility] <BERNADETTE Palomo - Last Filed: 02/14/24 16:00> [facility] Medical History (Updated 02/14/24 @ 15:51 by BERNADETTE Palomo) Obesity Vertigo Panic disorder Iron deficiency anemia Hypokalemia Carcinoid tumor of appendix Hyperlipidemia Infliximab (Remicade) long-term use Crohn's disease Essential hypertension Hemorrhoid GERD (gastroesophageal reflux disease) Home Medications ?Medication ?Instructions ?Recorded ?Last Taken ?Type chlorthalidone 25 mg tablet 25 mg PO QHS 05/09/16 05/22/16 22:00 History losartan 100 mg tablet 100 mg PO QHS 05/09/16 05/22/16 22:00 History clonidine HCl 0.2 mg tablet 0.2 mg PO BID 12/31/17 Unknown History cholecalciferol (vitamin D3) 125 125 mcg PO DAILY 03/22/20 Unknown History mcg (5,000 unit) capsule infliximab 100 mg intravenous 100 mg IV .q8week 03/22/20 Unknown History solution (Remicade) meclizine 25 mg tablet 25 mg PO .COMPLEX 03/22/20 Unknown History multivitamin,gx-fgya-evqrqbwl 1 tab PO DAILY 03/22/20 Unknown History (Complete Multivitamin tablet) omeprazole 20 mg capsule,delayed 20 mg PO .COMPLEX 03/22/20 Unknown History release potassium chloride 20 mEq 20 meq PO DAILY PRN supplement 03/22/20 Unknown History tablet,extended release promethazine 12.5 mg tablet 12.5 mg PO Q6H PRN Nausea 03/22/20 Unknown History escitalopram oxalate 20 mg tablet 20 mg PO DAILY 03/24/20 Unknown History norgestrel 0.3 mg-ethinyl 1 tab PO DAILY Diarrhea 03/24/20 Unknown History estradiol 30 mcg tablet ondansetron 4 mg disintegrating 4 mg PO Q6H PRN PRN Nausea #10 tabs 04/25/20 Unknown Rx tablet ciprofloxacin HCl 500 mg tablet 500 mg PO BID #20 TABLETS 07/15/22 Unknown Rx dicyclomine 10 mg capsule 20 mg (2 x 10 mg) PO TIDAC #20 07/15/22 Unknown Rx CAPSULES metronidazole 500 mg tablet 500 mg PO Q6H #40 tabs 07/15/22 Unknown Rx prednisone 20 mg tablet 40 mg (2 x 20 mg) PO DAILY 4 days 02/14/24 Unknown Rx #8 tabs Allergy/AdvReac Type Severity Reaction Status Date / Time atenolol Allergy Intermediate Rash/Hives Verified 02/14/24 13:09 lisinopril Allergy Intermediate Hives Verified 02/14/24 13:09 amoxicillin (From Augmentin) Allergy Nausea/Vom/ Verified 02/14/24 13:09 Diarrhea clavulanic acid (From Allergy Nausea/Vom/ Verified 02/14/24 13:09 Augmentin) Diarrhea amlodipine AdvReac Unknown Unknown Verified 02/14/24 13:09 bupropion (From Wellbutrin) AdvReac Unknown Unknown Verified 02/14/24 13:09 hydrochlorothiazide AdvReac Unknown Unknown Verified 02/14/24 13:09 pseudoephedrine (From AdvReac Unknown Unknown Verified 02/14/24 13:09 Sudafed) hydrocodone (From [place]) AdvReac Nausea Verified 02/14/24 13:09 Family History Mother Diabetes Heart disease chf Father Hypertension Myocardial infarction, Onset Age: 60 CAD (coronary artery disease) CABG Grandmother Heart disease chf Surgical History History of colonoscopy History of colon resection History of appendectomy Social History (Updated 02/14/24 @ 13:14 by Laura Bar) household members: family current occupational status: employed Smoking Status: Former smoker quit date: 02/05/03 ROS <BERNADETTE Palomo - Last Filed: 02/14/24 16:00> [facility] ROS Narrative Constitutional: Positive for chills, malaise. CVS: Positive for chest pressure. No palpitations or syncope. Respiratory: Positive for shortness of breath, cough. GI: Negative for abdominal pain, nausea, vomiting, diarrhea. EXAM <BERNADETTE Palomo - Last Filed: 02/14/24 16:00> Physical Exam Narrative Exam Narrative: CONST: Patient sitting in no acute distress. EYES: Normal inspection. NECK: Normal inspection. RESP: Frequent cough and mild tachypnea, expiratory wheezing in bases which resolved after coughing. No retractions CVS: Regular rate and rhythm, no murmur, no gallop. SKIN: Color normal, no rash, warm, dry, intact. EXTREMITIES: Normal appearance, no pedal edema. NEURO: Alert and answering questions appropriately. PSYCH: Normal affect. Const Vital Signs: 02/14/24 13:07 02/14/24 14:05 02/14/24 14:08 Temperature 97.8 F Temperature Source Temporal Pulse Rate 73 72 Respiratory Rate 16 18 Respiratory Effort Short of Breath Respiratory Pattern Normal Tachypnea Blood Pressure 159/86 H Blood Pressure Mean 110 Pulse Ox 100 Oxygen Delivery Method Room Air 02/14/24 15:06 02/14/24 16:09 Temperature 98.9 F Temperature Source Pulse Rate 75 75 Respiratory Rate 16 16 Respiratory Effort Respiratory Pattern Blood Pressure 145/78 H 145/78 H Blood Pressure Mean 100 100 Pulse Ox 96 96 Oxygen Delivery Method <Dakota Chiu MD - Last Filed: 02/15/24 10:03> Physical Exam Const Vital Signs: 02/14/24 13:07 02/14/24 14:05 02/14/24 14:08 Temperature 97.8 F Temperature Source Temporal Pulse Rate 73 72 Respiratory Rate 16 18 Respiratory Effort Short of Breath Respiratory Pattern Normal Tachypnea Blood Pressure 159/86 H Blood Pressure Mean 110 Pulse Ox 100 Oxygen Delivery Method Room Air 02/14/24 15:06 02/14/24 16:09 Temperature 98.9 F Temperature Source Pulse Rate 75 75 Respiratory Rate 16 16 Respiratory Effort Respiratory Pattern Blood Pressure 145/78 H 145/78 H Blood Pressure Mean 100 100 Pulse Ox 96 96 Oxygen Delivery Method MDM <BERNADETTE Palomo - Last Filed: 02/14/24 16:00> MDM MDM Narrative Medical decision making narrative: Differential includes bronchitis, pneumonia, ACS 58-year-old female was evaluated for 2 weeks of cough and 1 day of chest pressure and dyspnea on exertion. She has been on antibiotics for 3 days for presumptive diagnosis of pneumonia. She appears well and nontoxic and is afebrile and hemodynamically stable. She has a frequent cough and mild expiratory wheeze on exam which resolved after coughing. Lung sounds otherwise clear. CBC, BMP overall unremarkable. EKG is nonischemic and troponin is 5. CXR is negative for pneumonia but has mild inflammation or atelectasis in the lung bases. After DuoNeb and p.o. prednisone 60 mg she is feeling much better. She is able to converse without dyspnea and ambulatory pulse ox is 95% or above. She was treated for bronchitis with 4 additional days of a prednisone burst. She already has antibiotics and an albuterol inhaler. Return precautions were discussed and she was discharged in stable condition. Lab Data Attestation: I reviewed the patient's lab results. Labs: Laboratory Results - last 24 hr 02/14/24 14:00 WBC 5.9 RBC 4.76 Hgb 15.3 H Hct 44.0 MCV 92.4 MCH 32.1 H MCHC 34.8 RDW Std Deviation 42.8 RDW Coeff of Rubén 12.5 Plt Count 262 MPV 9.8 Immature Gran % (Auto) 0.700 Neut % (Auto) 52.0 Lymph % (Auto) 34.6 [place] % (Auto) 9.8 Eos % (Auto) 2.4 Baso % (Auto) 0.5 Absolute Neuts (auto) 3.1 Absolute Lymphs (auto) 2.04 Nucleated RBC % 0 Sodium 137 Potassium 3.4 L Chloride 103 Carbon Dioxide 26.0 Anion Gap 8 BUN 15 Creatinine 0.64 Estim Creat Clear Calc 117.53 Est GFR (MDRD) Af Amer 123 Est GFR (MDRD) Non-Af 102 BUN/Creatinine Ratio 23.4 H Glucose 131 H Calcium 9.5 Troponin I High Sens 5 Radiography Diagnostic Testing: Clinical Impression(s) from Imaging Studies Chest X-Ray 02/14/24 14:10 IMPRESSION: Mild inflammation or atelectasis in the lung bases. Electronically Signed: Danae Rick MD at 14:36 EST , ED attending interpretation of 2 view chest x-ray shows normal heart size, no acute infiltrate. EKG Initial EKG: Attestation: I personally reviewed and interpreted this EKG as follows: Interpretation: Sinus Rhythm and No Acute Injury Pattern Comments: Normal sinus rhythm at 71 bpm Normal intervals, no acute ischemic changes <Dakota Chiu MD - Last Filed: 02/15/24 10:03> [facility] Lab Data Labs: Laboratory Results - last 24 hr 02/14/24 14:00 WBC 5.9 RBC 4.76 Hgb 15.3 H Hct 44.0 MCV 92.4 MCH 32.1 H MCHC 34.8 RDW Std Deviation 42.8 RDW Coeff of Rubén 12.5 Plt Count 262 MPV 9.8 Immature Gran % (Auto) 0.700 Neut % (Auto) 52.0 Lymph % (Auto) 34.6 [place] % (Auto) 9.8 Eos % (Auto) 2.4 Baso % (Auto) 0.5 Absolute Neuts (auto) 3.1 Absolute Lymphs (auto) 2.04 Nucleated RBC % 0 Sodium 137 Potassium 3.4 L Chloride 103 Carbon Dioxide 26.0 Anion Gap 8 BUN 15 Creatinine 0.64 Estim Creat Clear Calc 117.53 Est GFR (MDRD) Af Amer 123 Est GFR (MDRD) Non-Af 102 BUN/Creatinine Ratio 23.4 H Glucose 131 H Calcium 9.5 Troponin I High Sens 5 Radiography Diagnostic Testing: Clinical Impression(s) from Imaging Studies Chest X-Ray 02/14/24 14:10 IMPRESSION: Mild inflammation or atelectasis in the lung bases. Electronically Signed: Danae Rick MD at 14:36 EST , Treatment and Re-Evaluation :: Dr. Chiu: I have personally performed a face to face assessment of the patient and have reviewed the KALLIE Note. I performed a substantive portion of the visit including all aspects of the following. My aguila findings include: History is cough x 2 weeks, increased difficulty breathing. Seen at urgent care and placed on antibiotics. Exam is afebrile. Vital signs noted. Occasional expiratory wheeze. Moving a good amount of air. Occasional rhonchi. Cardiovascular examination regular rate and rhythm. Medical Decision Making: Differential diagnosis includes bronchitis versus pneumonia versus pneumothorax. Chest x-ray obtained and interpreted by myself independently shows no evidence of pneumonia. She is already on antibiotics. There is inflammation noted on the radiology report she will finish her antibiotics and steroids will be added. Continue MDI after aerosol treatment in the ED. Discharge. Other additions or changes: [None] Discharge Plan Triage Chief Complaint: Shortness of Breath ED Midlevel Provider: Kristan Davies ED Provider: Dakota Chiu Dx/Rx/DC Orders Clinical Impression: Bronchitis Instructions: Acute Bronchitis Prescriptions: New prednisone 20 mg tablet 40 mg PO DAILY 4 Days Qty: 8 0RF No Action potassium chloride 20 mEq tablet extended release 20 meq PO DAILY PRN (Reason: supplement) infliximab [Remicade] 100 mg recon soln 100 mg IV .q8week Rx Instructions: IV per ordering physician as directed meclizine 25 mg tablet 25 mg PO .COMPLEX Rx Instructions: 25 mg PO q 6 hours prn; promethazine 12.5 mg tablet 12.5 mg PO Q6H PRN (Reason: Nausea) omeprazole 20 mg capsule,delayed release(DR/EC) 20 mg PO .COMPLEX Rx Instructions: 20 mg PO bid until reflux resolved then daily; cholecalciferol (vitamin D3) 125 mcg (5,000 unit) capsule 125 mcg PO DAILY Complete Multivitamin Tablet 1 tab PO DAILY chlorthalidone 25 MG tablet 25 mg PO QHS Patient Comments: Take 1 tablet by mouth once daily. As directed losartan 100 MG tablet 100 mg PO QHS Patient Comments: BP MED. norgestrel-ethinyl estradiol 0.3-30 mg-mcg tablet 1 tab PO DAILY Patient Comments: Take 1 tablet by mouth once daily. CONTROL clonidine HCl 0.2 MG tablet 0.2 mg PO BID escitalopram oxalate 20 mg tablet 20 mg PO DAILY ondansetron 4 MG tablet 4 mg PO Q6H PRN PRN (Reason: Nausea) Qty: 10 0RF metronidazole [metronidazole] 500 mg tablet 500 mg PO Q6H Qty: 40 0RF ciprofloxacin HCl [ciprofloxacin HCl] 500 mg tablet 500 mg PO BID Qty: 20 0RF dicyclomine 10 mg capsule 20 mg PO TIDAC Qty: 20 0RF Primary Care Provider: Zora Mejia Referrals: Zora Mejia MD [Primary Care Provider] - Activity Restrictions/Additional Instructions: Your chest x-ray does not show pneumonia. You can continue your antibiotics and inhaler and I prescribed prednisone. You were given a dose in the emergency room today and 4 additional days to take at home. Take Tylenol or ibuprofen as needed for pain. Return to the emergency room if your breathing significantly worsens. Print Language: Sami Disposition Disposition: Home, Self Care Discharge Date/Time: 02/14/24 16:10
[2024-02-14] MEDS: Ipratropium/Albuterol Sulfate 3 ML AMPUL.NEB INHALATION (14:04)
[2024-02-14 14:05] VITALS: PULSE 72; RESP 18
[2024-02-14 14:08] VITALS: O2SAT 96
--- NOTE | 2024-02-14 14:10 | RAD_ITS ---
HISTORY: cough. TECHNIQUE: XR Chest 2 Views. COMPARISON: None. FINDINGS: CARDIOMEDIASTINAL BORDERS: Cardiac silhouette within normal limits in size. Mediastinal contour unremarkable. LUNGS: Mild linear opacities in the lung bases. PLEURA: No pleural effusion or pneumothorax seen. OSSEOUS STRUCTURES: Unremarkable. RAD/Chest PA and Lateral IMPRESSION: Mild inflammation or atelectasis in the lung bases. Electronically Signed: Danae Rick MD at 14:36 EST ,
[2024-02-14 14:11] LABS: Absolute Lymphocyte Count 2.04 X10^3/uL (0.83-4.51); Absolute Neutrophil Count 3.1 X10^3/uL (2.0-7.7); Basophil# 0.03 X10^3/uL; Basophil% 0.5 % (0-1); Eosinophil# 0.14 X10^3/uL; Eosinophils% 2.4 % (0-5); Hemoglobin 15.3 g/dL (12.0-15.0); Lymphocyte # 2.04 X10^3/ul (0.83-4.51); Lymphocyte % 34.6 % (19-41); Mean Corp Hgb Conc 34.8 g/dL (32-36); Mean Corpuscular Hgb 32.1 pg (27.0-32.0); Mean Corpuscular Volume 92.4 fL (81-99); Mean Platelet Vol. 9.8 fl (6.2-12.0); Monocyte# 0.58 X10^3/uL; Monocyte% 9.8 % (0-10); NRBC Flagged by Analyzer 0 % (0-5); Neutrophil # 3.07 X10^3/uL (2.7-7.7); Platelet Count 262 K/mm3 (150-450); RBC Distribution Width CV 12.5 % (11.6-14.6); RBC Distribution Width SD 42.8 fl (35.1-43.9); Red Blood Count 4.76 M/mm3 (4.2-5.4); White Blood Count 5.9 K/mm3 (4.4-11.0)
[2024-02-14 14:40] LABS: Anion Gap 8 (5-15); BUN 15 mg/dL (7-18); BUN/Creat Ratio 23.4 RATIO (10-20); Calcium,Total 9.5 mg/dL (8.5-10.1); Chloride 103 mmol/L (98-107); Creatinine, Serum 0.64 mg/dL (0.55-1.02); EST Glomerular Filtration Rate 102 mL/min (>60); Est Glom Filt Rate - Afr Amer 123 mL/min (>60); Estimated Creatinine Clearance 117.53 ml/min; Glucose 131 mg/dL (74-106); Potassium 3.4 mmol/L (3.5-5.1); Sodium Level 137 mmol/L (136-145); Troponin-I HS 5 pg/mL (3.0-54.0)
[2024-02-14] MEDS: predniSONE 20 MG Tablet 60 MG PO (15:01)
[2024-02-14 15:06] VITALS: BP 145/78; PULSE 75; RESP 16; O2SAT 96
--- NOTE | 2024-02-14 15:06 | EKG12_ITS ---
Test Reason : SOB Blood Pressure : */* mmHG Vent. Rate : 71 BPM Atrial Rate : 71 BPM P-R Int : 144 ms QRS Dur : 80 ms QT Int : 414 ms P-R-T Axes : 26 24 42 degrees QTcB Int : 449 ms Normal sinus rhythm Normal ECG Confirmed by Chong Gerard ([id number]), video news editor RJ DE [place] VE[place] ([id number]) on 02/15/2024 9:36:06 AM Referred By: Confirmed By: Chong Gerard
[2024-02-14 15:35] VITALS: O2SAT 99
[2024-02-14 16:09] VITALS: BP 145/78; PULSE 75; RESP 16; TEMP 37.2; O2SAT 96
== END 2024-02-14 16:10 | disposition home or self-care (01) ==
PROVIDERS: Physician Assistant; Emergency Provider Emergency Medicine; PCP Internal Medicine; Visit Provider Emergency Medicine
DX: J40 Bronchitis, not specified as acute or chronic (principal); K50.90 Crohn's disease, unspecified, without complications; I10 Essential (primary) hypertension; Z87.891 Personal history of nicotine dependence; E78.5 Hyperlipidemia, unspecified
CPT/HCPCS: 71046; 80048; 84484; 85025; 93005; 94640; 99283; A4216